=== PATIENT | male | born 1970 | race Caucasian/White ===

== ENCOUNTER → 2020-07-25 | Outpatient (CLI) | payer SELFPAY ==
[2020-07-25 14:40] LABS: BASOPHIL % 0.8 % (0.0-0.2); EOSINOPHIL # 0.2 10^3/uL (0.0-0.2); EOSINOPHIL % 3.9 % (0.0-5.0); LYMPHOCYTES # 1.18 10^3/uL1 (1.0-4.8); MEAN CORP HGB 28.2 pg (26-34); MONOCYTES # 0.4 10^3/uL (0.3-0.8); NEUTROPHILS % 52.8 % (41.0-85.0); PLATELET COUNT 336 10^3/uL (150-400); RED CELL DISTRIBUTION WIDTH 12.7 % (11.5-14.5)
[2020-07-25 15:07] LABS: CALCIUM 8.9 mg/dL (8.4-10.5); CARBON DIOXIDE 27.9 mmol/L (20.0-32)
== END | disposition home or self-care (01) ==
LOC: LAB 14:25
PROVIDERS: ATTEND Nurse Practitioner Family
DX: Z12.5 Encounter for screening for malignant neoplasm of prostate (principal); I10 Essential (primary) hypertension; E11.9 Type 2 diabetes mellitus without complications
CPT/HCPCS: 36415; 80053; 83036; 84153; 84439; 84443; 85025